=== PATIENT | male | born 1955 | race Caucasian/White ===

== ENCOUNTER 2017-05-22 09:02 | Day surgery (SDC) | payer OTHER ==
[~2017-05-22] VITALS: Ht 182.9 cm; Wt 77.8 kg
[~2017-05-22 09:02] MED LIST: INDERAL XL80 MG; RIZATRIPTAN10 M1; TAMS.4ER; TOPI50
== END 2017-05-22 11:10 | disposition home or self-care (01) ==
LOC: ORSCSDS 09:02
PROVIDERS: Internal Medicine Gastroenterology
PROC: 0DBM8ZX Excision of Descending Colon, Via Natural or Artificial Opening Endoscopic, Diagnostic (ICD-10-PCS; principal; 2017-05-22 10:30)
PROC: 0DBL8ZX Excision of Transverse Colon, Via Natural or Artificial Opening Endoscopic, Diagnostic (ICD-10-PCS; principal; 2017-05-22 10:30)
PROC: 0DBH8ZX Excision of Cecum, Via Natural or Artificial Opening Endoscopic, Diagnostic (ICD-10-PCS; principal; 2017-05-22 10:30)
PROC: 0DBK8ZX Excision of Ascending Colon, Via Natural or Artificial Opening Endoscopic, Diagnostic (ICD-10-PCS; principal; 2017-05-22 10:30)
DX: Z12.11 Encounter for screening for malignant neoplasm of colon (principal); D12.0 Benign neoplasm of cecum; D12.2 Benign neoplasm of ascending colon; D12.3 Benign neoplasm of transverse colon; D12.4 Benign neoplasm of descending colon; K64.8 Other hemorrhoids; K57.30 Diverticulosis of large intestine without perforation or abscess without bleeding; B18.2 Chronic viral hepatitis C; Z86.010 Personal history of colon polyps; F17.210 Nicotine dependence, cigarettes, uncomplicated; N40.0 Benign prostatic hyperplasia without lower urinary tract symptoms; Z79.899 Other long term (current) drug therapy
CPT/HCPCS: 88305; J7120

== ENCOUNTER 2017-06-13 11:12 | Emergency (ER) | payer OTHER ==
[~2017-06-13] VITALS: Ht 182.9 cm; Wt 79.4 kg
[2017-06-13] MEDS ORDERED: Keflex500 MG PO ×2 (14:55→15:05)
[2017-06-13] MEDS ORDERED: Bactrim Ds Tab1 EACH PO ×2 (14:55→15:05)
== END 2017-06-13 15:15 | disposition home or self-care (01) ==
LOC: ER 11:12
DX: L02.214 Cutaneous abscess of groin (principal); Z91.030 Bee allergy status; Z88.8 Allergy status to other drugs, medicaments and biological substances; Z91.018 Allergy to other foods; Z79.899 Other long term (current) drug therapy; F17.200 Nicotine dependence, unspecified, uncomplicated; G43.909 Migraine, unspecified, not intractable, without status migrainosus
CPT/HCPCS: 10061; 81000; 99283

== ENCOUNTER 2018-06-29 11:13 | Emergency (ER) | payer OTHER ==
[~2018-06-29] VITALS: Ht 182.9 cm; Wt 85.7 kg
[~2018-06-29 11:13] MED LIST changes: +Bactrim Ds Tab1 EACH PO; +Keflex500 MG PO
[2018-06-29] MEDS ORDERED: Flonase 0.05% N16 GM (11:51)
[2018-06-29] MEDS ORDERED: Augmentin 875-1 EACH PO (11:51)
[2018-06-29] MEDS ORDERED: Mucinex1200 MG PO (11:51)
[2018-06-29] MEDS ORDERED: ONDA4ODT MM (11:51)
== END 2018-06-29 11:55 | disposition home or self-care (01) ==
LOC: ER 11:13
DX: J32.9 Chronic sinusitis, unspecified (principal); Z91.030 Bee allergy status; Z91.018 Allergy to other foods; Z79.899 Other long term (current) drug therapy; F17.200 Nicotine dependence, unspecified, uncomplicated
CPT/HCPCS: 99283

== ENCOUNTER 2020-07-30 07:24 | Inpatient (IN) | payer MEDICARE ==
[~2020-07-30] VITALS: Ht 182.9 cm; Wt 82.0 kg
[~2020-07-30 07:24] MED LIST changes: +Augmentin 875-1 EACH PO; +Flonase 0.05% N16 GM; +Mucinex1200 MG PO; +ONDA4ODT MM
[2020-07-30 07:54] LABS: BASOPHILS ABSOLUTE AUTO 0.03 K/mm3 (0.00-0.23); BASOPHILS PERCENT AUTO 0 % (0-2); EOSINOPHILS PERCENT AUTO 0 % (0-6); Hematocrit 39.9 % (37.0-53.0); Hemoglobin 13.1 g/dL (13.5-17.5); IMMATURE GRAN ABSOLUTE AUTO 0.06 K/mm3 (0.00-0.10); IMMATURE GRAN PERCENT AUTO 0 % (0-1); LYMPHOCYTES ABSOLUTE AUTO 1.08 K/mm3 (0.84-5.20); LYMPHOCYTES PERCENT AUTO 6 % (21-46); MONOCYTES ABSOLUTE AUTO 1.42 K/mm3 (0.16-1.47); MONOCYTES PERCENT AUTO 8 % (4-13); Mean Corpuscular HGB 30.5 pg (26.0-34.0); Mean Corpuscular HGB Conc 32.8 g/dL (31.5-36.5); Mean Corpuscular Volume 93 fL (80-100); Mean Platelet Volume 10.6 fL (9.1-12.4); NEUTROPHILS ABSOLUTE AUTO 14.29 K/mm3 (1.96-9.15); NEUTROPHILS PERCENT AUTO 85 % (41-73); Platelet Count 193 K/mm3 (150-400); RDW Coefficient Variation 12.8 % (11.7-14.2); RDW Standard Deviation 43.8 fL (35.1-46.3); Red Blood Cell Count 4.29 M/mm3 (4.30-5.90); White Blood Cell Count 16.88 K/mm3 (4.00-11.30)
[2020-07-30 08:16] LABS: Source, Urine Clean Catch
[2020-07-30 08:20] LABS: Blood, Urine 2+ (Neg); Glucose Qualitative, Urine Neg (Neg); Ketones, Urine 3+ (Neg); Leukocyte Esterase, Urine 1+ (Neg); Nitrite, Urine Neg (Neg); Protein, Urine 2+ (Neg); Urobilinogen, Urine 3+ (Normal)
[2020-07-30 08:25] LABS: Appearance, Urine Hazy (Clear); Bilirubin, Urine 1+ (Neg); Color, Urine Yellow (P-Yellow)
[2020-07-30 08:26] LABS: Alanine Aminotransfer (ALT/SGP 41 U/L (12-78); Albumin, Blood 3.7 g/dL (3.4-5.0); Albumin/Globulin Ratio 0.9 (0.8-1.8); Alk Phos 74 U/L (50-136); Anion Gap 8 mmol/L (6-16); Aspartate Aminotrans (AST/SGOT 116 U/L (12-37); Bilirubin, Total 1.7 mg/dL (0.1-1.0); Blood Urea Nitrogen 17 mg/dL (8-24); Bun/Creatinine Ratio 18.3 (12.0-20.0); CO2, Blood 25 mmol/L (21-32); Calcium, Blood 9.1 mg/dL (8.5-10.1); Chloride, Blood 102 mmol/L (98-108); Creatinine, Blood 0.93 mg/dL (0.60-1.20); Globulin, Blood 4.1 g/dL (2.2-4.0); Glomerular Filtration Rate >60 (60-); Glucose, Blood 114 mg/dL (70-99); Potassium, Blood 3.8 mmol/L (3.5-5.5); Sodium, Blood 135 mmol/L (136-145); Total Protein, Blood 7.8 g/dL (6.4-8.2)
[2020-07-30 08:30] LABS: Bacteria Few /hpf; Red Blood Cells, Urine 0-2 /hpf (0-2); Squamous Epithelial Cells Rare /hpf (Few)
[2020-07-30 09:19] LABS: International Normalized Ratio 1.02; Prothrombin Time Results 10.9 Sec (9.7-11.5)
[2020-07-30 11:12] LABS: Influenza A, PCR NEGATIVE (NEGATIVE); Influenza B, PCR NEGATIVE (NEGATIVE); Resp Syncytial Virus, PCR NEGATIVE (NEGATIVE); SARS-Cov-2 (COVID-19) PCR, MMC NEGATIVE (NEGATIVE)
--- NOTE | 2020-07-30 13:16 | NUR ---
Admission/Transfer to HC: Patient arrived to unit at 1230hr, via stretcher, accompanied by ED nurse and his . Patient alert and oriented x4, calm and cooperative with staff. Patient reports chest pain (sharp) and pressure 8-10/10 upon arrival. Denies dyspnea/SOB. VSS, SPO2-94-97% on RA, HR shows sinus in the 70's, BP- systolic 90's-low 100's. Heparin gtt started per pharmacy consult, and Nitro gtt started at 5 mcg/min per chest pain. Plan to titrate nitro up to alleviate chest pain and as tolerated (BP's). Peripheral IV's x2 patent and intact. PO plavix, lipitor, lopressor also given. HC staff arrived to room at 1310hr to take patient for angiogram, transferred out of unit at 1315hr.
[2020-07-30 13:57] LABS: U Amphetamine Screen Not Detected; U Barbituate Screen Not Detected; U Benzodiazapine Screen Not Detected; U Buprenorphine Screen Not Detected; U Cannabinoids Screen Not Detected; U Cocaine Screen Not Detected; U Methadone Screen Not Detected; U Methamphetamine Screen Not Detected; U Opiates Screen Not Detected; U Oxycodone Screen DETECTED; U Phencyclidine Screen Not Detected; U Propoxyphene Screen Not Detected
--- NOTE | 2020-07-30 16:36 | NUR ---
Return from HC: Patient returned from at approx 1545hr, via bed, accompanied by HC nurse. Patient alert and oriented, denies any pain or discomfort. VSS, spO2-98% on RA, sinus rhythm in the 70's. Agrastat gtt infusing upon arrival, but no orders in EMAR. Dr. Braun to unit at approx 1615hr, received orders for lab's in the morning, and to continue Agrastat gtt, informed he would place to order for the gtt. TR band with 10ml to rt radial, no s/s of bleeding or hematoma, arm-board in place. Instructed to no use rt wrist/hand and to call for assistance. now at bedside, patient remains calm and comfortable. Will continue to monitor.
--- NOTE | 2020-07-30 19:00 | NUR ---
ASSUMED CARE ASSUMED CARE OF PATIENT. AWAKE AND ALERT. ORIENTED AND COOPERATIVE WITH CARE. DENIES C/O PAIN OR DISCOMFORT AT THIS TIME. UP WITH STANDBY ASSIST WITHOUT DIFFICULTY. VSS. RA SATS STABLE. RESPIRATIONS EVEN AND UNLABORED. VOIDING WITHOUT DIFFICULTY. CONTINUES TO PASS LIQUID STOOL- PT STATES HE TOOK MAG CITRATE AT HOME. AGGRASTAT CONTINUES PER ORDER. RIGHT RADIAL TR BAND IN PLACE WITH APPROXIMATELY 9CC OF AIR IN PLACE. SITE IS SOFT. NO BLEEDING OR HEMATOMA NOTED. SEE SHIFT ASSESSMENT FOR FULL ASSESSMENT.
--- NOTE | 2020-07-30 19:22 | NUR ---
Shift Summary: No significant changes throughout remainder of shfit (see previous note). Rt radial arterial access site remains wnl, no s/s of bleeding or hematoma. Attempted to remove 2ml of air from TR band at approx 1800hr, but site began to ooze blood, 2ml air returned to band and bleeding stopped. Then removed 1ml of air at approx 1830, no bleeding/hematoma noted. Site visualized and assessed with NOC shift RN. Continues to deny pain, discomfort, SOB or dyspnea. VS remain stable. Transferred to bedside commode via stand-by assisst without difficulty. Tolerated PO food and fluids without difficulty.
--- NOTE | 2020-07-30 22:05 | NUR ---
TR BAND TR BAND IS FULLY DEFLATED AT THIS TIME. SITE IS SOFT. NO BLEEDING/OOZING NOTED. ARM BOARD REMAINS IN PLACE.
[2020-07-31 03:31] LABS: BASOPHILS ABSOLUTE AUTO 0.05 K/mm3 (0.00-0.23); BASOPHILS PERCENT AUTO 0 % (0-2); EOSINOPHILS ABSOLUTE AUTO 0.02 K/mm3 (0.00-0.68); EOSINOPHILS PERCENT AUTO 0 % (0-6); Hematocrit 35.9 % (37.0-53.0); Hemoglobin 12.1 g/dL (13.5-17.5); IMMATURE GRAN ABSOLUTE AUTO 0.04 K/mm3 (0.00-0.10); IMMATURE GRAN PERCENT AUTO 0 % (0-1); LYMPHOCYTES ABSOLUTE AUTO 2.32 K/mm3 (0.84-5.20); LYMPHOCYTES PERCENT AUTO 17 % (21-46); MONOCYTES ABSOLUTE AUTO 1.35 K/mm3 (0.16-1.47); MONOCYTES PERCENT AUTO 10 % (4-13); Mean Corpuscular HGB 30.9 pg (26.0-34.0); Mean Corpuscular HGB Conc 33.7 g/dL (31.5-36.5); Mean Corpuscular Volume 92 fL (80-100); Mean Platelet Volume 10.7 fL (9.1-12.4); NEUTROPHILS ABSOLUTE AUTO 9.54 K/mm3 (1.96-9.15); NEUTROPHILS PERCENT AUTO 72 % (41-73); Platelet Count 165 K/mm3 (150-400); RDW Coefficient Variation 13.1 % (11.7-14.2); RDW Standard Deviation 43.9 fL (35.1-46.3); Red Blood Cell Count 3.92 M/mm3 (4.30-5.90); White Blood Cell Count 13.32 K/mm3 (4.00-11.30)
[2020-07-31 04:06] LABS: Alanine Aminotransfer (ALT/SGP 39 U/L (12-78); Albumin/Globulin Ratio 0.8 (0.8-1.8); Alk Phos 84 U/L (50-136); Anion Gap 4 mmol/L (6-16); Aspartate Aminotrans (AST/SGOT 74 U/L (12-37); Bilirubin, Total 1.1 mg/dL (0.1-1.0); Blood Urea Nitrogen 22 mg/dL (8-24); Bun/Creatinine Ratio 22.2 (12.0-20.0); CO2, Blood 29 mmol/L (21-32); Calcium, Blood 8.7 mg/dL (8.5-10.1); Chloride, Blood 103 mmol/L (98-108); Cholesterol 131 mg/dL (50-200); Creatinine, Blood 0.99 mg/dL (0.60-1.20); Globulin, Blood 3.9 g/dL (2.2-4.0); Glomerular Filtration Rate >60 (60-); Glucose, Blood 105 mg/dL (70-99); HDL Cholesterol 43 mg/dL (>39); LDL/HDL RATIO 1.8; Low Density Lipoprotein Chol 76 mg/dL (0-110); Potassium, Blood 4.3 mmol/L (3.5-5.5); Sodium, Blood 136 mmol/L (136-145); Total Protein, Blood 6.9 g/dL (6.4-8.2); Triglycerides 61 mg/dL (30-160); Very Low Density Lipoprot Chol 12 mg/dL (6-32)
--- NOTE | 2020-07-31 06:13 | NUR ---
SHIFT SUMMARY NO ACUTE CHANGES DURING NOC. SLEPT WHEN UNDISTURBED. UP TO BATHROOM WITH STAND-BY ASSIST WITHOUT DIFFICULTY. VOIDING. DENIES C/O DIZZINESS, CHEST PAIN, OR OTHER DISCOMFORT. SBP 80s-90s WHILE ASLEEP. MONITOR SHOWS NSR. REMAINS ON RA- SATS STABLE. AGGRASTAT CONTINUES PER ORDER- PLAN IS TO DISCONTINUE AT 0900 (18 HOUR INFUSION). RIGHT RADIAL SITE IS SOFT, SMALL AMOUNT OF OOZING NOTED UNDER OPSITE. ARM BOARD IN PLACE AND PT HAS BEEN INSTRUCTED ON LIMITATIONS. UP IN CHAIR AT THIS TIME. WILL REPORT TO ONCOMING RN WHEN AVAILABLE.
--- NOTE | 2020-07-31 08:30 | NUR ---
ASSESSMENT- PT AWAKE, ALERT, ORIENTED, COOPERATIVE. UP IN CHAIR, NO DISTRESS. DENIES ANY PAIN OR SOB OR DIZZINESS. STATES DOES NORMALLY HAVE A LOW BLOOD PRESSURE BUT DOES NOT KNOW SPECIFIC NUMBER. NSR. LUNGS CLEAR. DR. CAICEDO HERE EARLIER. DR. BOX HERE NOW-PLANS FOR DISCHARGE THIS AFTERNOON IF NO COMPLAINTS. PT STATES WANTS TO GO HOME. VERY TALKATIVE. TEACHING REGARDING PLAN OF CARE, STATES UNDERSTANDS NEED TO TAKE PLAVIX AND ASA. ATE BREAKFAST.
--- NOTE | 2020-07-31 11:24 | NUR ---
PT UP IN CHAIR TALKING ON PHONE. DENIES COMPLAINTS. VS UNCHANGED. BP REMAINS LOW. NO DIZZINESS OR COMPLAINTS.
[2020-07-31] MEDS ORDERED: ATOR40TA PO (14:01)
[2020-07-31] MEDS ORDERED: ACET325 PO (14:01)
[2020-07-31] MEDS ORDERED: ASPI81CH PO (14:01)
[2020-07-31] MEDS ORDERED: CLOP75 PO (14:02)
--- NOTE | 2020-07-31 14:28 | NUR ---
PT WITH STABLE VS, DR. BOX HERE-UPDATED. ORDERS FOR DISCHARGE. REVIEWED MEDS, DISCHARGE PLAN, PRECAUTIONS WITH PT AND PT'S SIG OTHER-STATE UNDERSTANDING. DOES NOT HAVE CURRENT PHYSICIAN, PLANS TO SEE DR. CARRANZA-APPOINTMENT MADE. RIGHT RADIAL SITE DI. PIV D/C X 2. SMOKING CESSATION EMPHASIZED. MEDS CALLED IN
== END 2020-07-31 14:30 | disposition home or self-care (01) | DRG 247 ==
LOC: ER 07:24 → ICUW 10:19
PROVIDERS: Emergency Medicine; Nurse Practitioner Acute Care; Pharmacist; Physician Assistant; ADMIT Internal Medicine
PROC: 027035Z Dilation of Coronary Artery, One Artery with Two Drug-eluting Intraluminal Devices, Percutaneous Approach (ICD-10-PCS; principal; 2020-07-30)
PROC: 02C03ZZ Extirpation of Matter from Coronary Artery, One Artery, Percutaneous Approach (ICD-10-PCS; 2020-07-30)
PROC: 4A023N7 Measurement of Cardiac Sampling and Pressure, Left Heart, Percutaneous Approach (ICD-10-PCS; 2020-07-30)
PROC: B2011ZZ Plain Radiography of Multiple Coronary Arteries using Low Osmolar Contrast (ICD-10-PCS; 2020-07-30)
DX: I21.4 Non-ST elevation (NSTEMI) myocardial infarction (principal); F17.210 Nicotine dependence, cigarettes, uncomplicated; Z20.822 Contact with and (suspected) exposure to COVID-19; Z92.3 Personal history of irradiation; B19.20 Unspecified viral hepatitis C without hepatic coma; I25.5 Ischemic cardiomyopathy; E78.5 Hyperlipidemia, unspecified; Z86.73 Personal history of transient ischemic attack (TIA), and cerebral infarction without residual deficits
CPT/HCPCS: 0241U; 36415; 70450; 71045; 71275; 74175; 80053; 80061; 81001; 83036; 83690; 83735; 83880; 84484; 85025; 85347; 85379; 85610; 85730; 87086; 93005; 93010; 93306; 93458; 96374-59; 96375-59; 99152; 99153; 99285-25; A9270; C1725; C1753; C1757; C1769; C1874; C1887; C1894; C9600; J0153; J0461; J1170; J1644; J2250; J3010; J3246; J7030; J7050; Q9967

== ENCOUNTER 2021-12-22 18:37 | Emergency (ER) | payer MEDICARE ==
[~2021-12-22] VITALS: Ht 182.9 cm; Wt 84.4 kg
[~2021-12-22 18:37] MED LIST changes: +ACET325 PO; +ASPI81CH PO; +ATOR40TA PO; +CLOP75 PO
[2021-12-22] MEDS ORDERED: METO25ER PO (19:19)
[2021-12-22] MEDS ORDERED: OMEP20ER (19:19)
[2021-12-22] MEDS ORDERED: OXYC5 PO (20:16)
== END 2021-12-22 20:54 | disposition home or self-care (01) ==
LOC: ER 18:37
DX: S89.92XA Unspecified injury of left lower leg, initial encounter (principal); M25.562 Pain in left knee; F17.210 Nicotine dependence, cigarettes, uncomplicated; Z79.82 Long term (current) use of aspirin; Z79.899 Other long term (current) drug therapy; X58.XXXA Exposure to other specified factors, initial encounter
CPT/HCPCS: 29505; 73562-LT; 99283-25; A9270

== ENCOUNTER 2022-05-06 09:05 | Day surgery (SDC) | payer MEDICARE ==
[~2022-05-06] VITALS: Ht 182.9 cm; Wt 81.9 kg
[~2022-05-06 09:05] MED LIST changes: +METO25ER PO; +OMEP20ER; +OXYC5 PO
== END 2022-05-06 13:12 | disposition home or self-care (01) ==
LOC: ORSCSDS 09:05
PROVIDERS: Orthopaedic Surgery
PROC: 0SJD4ZZ Inspection of Left Knee Joint, Percutaneous Endoscopic Approach (ICD-10-PCS; principal; 2022-05-06 10:30)
DX: S83.232A Complex tear of medial meniscus, current injury, left knee, initial encounter (principal); M22.42 Chondromalacia patellae, left knee; I25.10 Atherosclerotic heart disease of native coronary artery without angina pectoris; I10 Essential (primary) hypertension; F17.210 Nicotine dependence, cigarettes, uncomplicated; Z79.82 Long term (current) use of aspirin; Z79.899 Other long term (current) drug therapy
CPT/HCPCS: 93005; 93010; A9270; J0171; J0690; J1100; J2250; J2405; J2704; J2795; J3010

== ENCOUNTER 2023-07-14 14:35 | Emergency (ER) | payer MEDICARE ==
[~2023-07-14] VITALS: Ht 182.9 cm; Wt 86.2 kg
[2023-07-14 15:01] VITALS: BP 131/80
[2023-07-14 15:46] LABS: BASOPHILS ABSOLUTE AUTO 0.07 K/mm3 (0.00-0.23); BASOPHILS PERCENT AUTO 1 % (0-2); EOSINOPHILS ABSOLUTE AUTO 0.29 K/mm3 (0.00-0.68); EOSINOPHILS PERCENT AUTO 3 % (0-6); Hematocrit 40.2 % (37.0-53.0); Hemoglobin 13.1 g/dL (13.5-17.5); IMMATURE GRAN ABSOLUTE AUTO 0.02 K/mm3 (0.00-0.10); IMMATURE GRAN PERCENT AUTO 0 % (0-1); LYMPHOCYTES PERCENT AUTO 39 % (21-46); MONOCYTES ABSOLUTE AUTO 0.76 K/mm3 (0.16-1.47); MONOCYTES PERCENT AUTO 9 % (4-13); Mean Corpuscular HGB 30.5 pg (26.0-34.0); Mean Corpuscular HGB Conc 32.6 g/dL (31.5-36.5); Mean Corpuscular Volume 94 fL (80-100); Mean Platelet Volume 10.3 fL (9.1-12.4); NEUTROPHILS ABSOLUTE AUTO 4.13 K/mm3 (1.96-9.15); NEUTROPHILS PERCENT AUTO 48 % (41-73); Platelet Count 212 K/mm3 (150-400); RDW Coefficient Variation 13.1 % (11.7-14.2); White Blood Cell Count 8.67 K/mm3 (4.00-11.30)
[2023-07-14 16:05] LABS: Albumin, Blood 3.6 g/dL (3.4-5.0); Albumin/Globulin Ratio 1.1 (0.8-1.8); Bilirubin, Total 0.4 mg/dL (0.1-1.0); Bun/Creatinine Ratio 19.7 (12.0-20.0); Creatinine, Blood 0.92 mg/dL (0.60-1.20); Globulin, Blood 3.3 g/dL (2.2-4.0); Potassium, Blood 4.5 mmol/L (3.5-5.5); Total Protein, Blood 6.9 g/dL (6.4-8.2)
== END 2023-07-14 16:23 | disposition left against medical advice (07) ==
LOC: ER 14:35
PROVIDERS: Physician Assistant
DX: R55 Syncope and collapse (principal); Z53.29 Procedure and treatment not carried out because of patient's decision for other reasons
CPT/HCPCS: 71046; 80053; 84484; 85025

== ENCOUNTER → 2024-02-23 | Outpatient (CLI) | payer MEDICARE ==
[2024-02-23 13:27] LABS: BASOPHILS ABSOLUTE AUTO 0.06 K/mm3 (0.00-0.23); BASOPHILS PERCENT AUTO 1 % (0-2); EOSINOPHILS ABSOLUTE AUTO 0.15 K/mm3 (0.00-0.68); EOSINOPHILS PERCENT AUTO 2 % (0-6); Hematocrit 46.1 % (37.0-53.0); Hemoglobin 15.3 g/dL (13.5-17.5); IMMATURE GRAN ABSOLUTE AUTO 0.02 K/mm3 (0.00-0.10); IMMATURE GRAN PERCENT AUTO 0 % (0-1); LYMPHOCYTES ABSOLUTE AUTO 2.63 K/mm3 (0.84-5.20); LYMPHOCYTES PERCENT AUTO 31 % (21-46); MONOCYTES ABSOLUTE AUTO 0.48 K/mm3 (0.16-1.47); MONOCYTES PERCENT AUTO 6 % (4-13); Mean Corpuscular HGB 31.4 pg (26.0-34.0); Mean Corpuscular HGB Conc 33.2 g/dL (31.5-36.5); Mean Corpuscular Volume 95 fL (80-100); Mean Platelet Volume 10.7 fL (9.1-12.4); NEUTROPHILS ABSOLUTE AUTO 5.17 K/mm3 (1.96-9.15); NEUTROPHILS PERCENT AUTO 61 % (41-73); Platelet Count 265 K/mm3 (150-400); RDW Coefficient Variation 12.5 % (11.7-14.2); RDW Standard Deviation 43.3 fL (35.1-46.3); Red Blood Cell Count 4.87 M/mm3 (4.30-5.90); White Blood Cell Count 8.51 K/mm3 (4.00-11.30)
[2024-02-23 14:06] LABS: Alanine Aminotransfer (ALT/SGP 36 U/L (12-78); Albumin, Blood 3.9 g/dL (3.4-5.0); Albumin/Globulin Ratio 1.2 (0.8-1.8); Alk Phos 73 U/L (50-136); Anion Gap 8 mmol/L (3-11); Aspartate Aminotrans (AST/SGOT 27 U/L (12-37); Bilirubin, Total 1.2 mg/dL (0.1-1.0); Blood Urea Nitrogen 15 mg/dL (8-24); CHOL/HDL RATIO 2.4; CO2, Blood 29 mmol/L (21-32); Calcium, Blood 9.5 mg/dL (8.5-10.1); Chloride, Blood 108 mmol/L (98-108); Cholesterol 130 mg/dL (50-200); Globulin, Blood 3.3 g/dL (2.2-4.0); Glucose, Blood 107 mg/dL (70-99); HDL Cholesterol 55 mg/dL (>39); Low Density Lipoprotein Chol 57 mg/dL (0-110); Potassium, Blood 4.5 mmol/L (3.5-5.5); Sodium, Blood 140 mmol/L (136-145); Total Protein, Blood 7.2 g/dL (6.4-8.2); Triglycerides 92 mg/dL (30-160); Very Low Density Lipoprot Chol 18 mg/dL (6-32)
[2024-02-23 14:07] LABS: Bun/Creatinine Ratio 15.8 (12.0-20.0); Creatinine, Blood 0.95 mg/dL (0.60-1.20); Glomerular Filtration Rate 87 (60-)
== END | disposition home or self-care (01) ==
LOC: LAB 12:08 → LAB SHORT 12:08
PROVIDERS: Internal Medicine
DX: Z12.5 Encounter for screening for malignant neoplasm of prostate (principal); E78.00 Pure hypercholesterolemia, unspecified
CPT/HCPCS: 80053; 80061; 85025; G0103

== ENCOUNTER → 2025-02-28 | Outpatient (CLI) | payer MEDICARE ==
[2025-02-28 14:49] LABS: BASOPHILS ABSOLUTE AUTO 0.05 K/mm3 (0.00-0.23); BASOPHILS PERCENT AUTO 1 % (0-2); EOSINOPHILS ABSOLUTE AUTO 0.17 K/mm3 (0.00-0.68); EOSINOPHILS PERCENT AUTO 2 % (0-6); Hematocrit 44.5 % (37.0-53.0); Hemoglobin 14.2 g/dL (13.5-17.5); IMMATURE GRAN ABSOLUTE AUTO 0.02 K/mm3 (0.00-0.10); IMMATURE GRAN PERCENT AUTO 0 % (0-1); LYMPHOCYTES ABSOLUTE AUTO 2.63 K/mm3 (0.84-5.20); LYMPHOCYTES PERCENT AUTO 29 % (21-46); MONOCYTES ABSOLUTE AUTO 0.57 K/mm3 (0.16-1.47); MONOCYTES PERCENT AUTO 6 % (4-13); Mean Corpuscular HGB Conc 31.9 g/dL (31.5-36.5); Mean Corpuscular Volume 94 fL (80-100); NEUTROPHILS ABSOLUTE AUTO 5.73 K/mm3 (1.96-9.15); NEUTROPHILS PERCENT AUTO 63 % (41-73); NRBC ABSOLUTE 0.00 K/mm3 (0.00-0.02); NRBC Auto 0.0 /100 WBC (0.0-0.2); Platelet Count 235 K/mm3 (150-400); RDW Coefficient Variation 12.8 % (11.7-14.2); RDW Standard Deviation 44.3 fL (35.1-46.3)
[2025-02-28 15:00] LABS: Alanine Aminotransfer (ALT/SGP 33 U/L (12-78); Albumin, Blood 4.1 g/dL (3.4-5.0); Albumin/Globulin Ratio 1.5 (0.8-1.8); Anion Gap 6 mmol/L (3-11); Aspartate Aminotrans (AST/SGOT 22 U/L (12-37); Bilirubin, Total 1.3 mg/dL (0.1-1.0); Blood Urea Nitrogen 19 mg/dL (8-24); CHOL/HDL RATIO 2.2; CO2, Blood 29 mmol/L (21-32); Calcium, Blood 9.1 mg/dL (8.5-10.1); Chloride, Blood 110 mmol/L (98-108); Cholesterol 103 mg/dL (50-200); Creatinine, Blood 0.84 mg/dL (0.60-1.20); Globulin, Blood 2.7 g/dL (2.2-4.0); Glucose, Blood 97 mg/dL (70-99); HDL Cholesterol 46 mg/dL (>39); LDL/HDL RATIO 1.0; Low Density Lipoprotein Chol 47 mg/dL (0-110); Potassium, Blood 3.8 mmol/L (3.5-5.5); Prostate Specific Antigen 4.440 ng/mL (0.000-4.000); Sodium, Blood 141 mmol/L (136-145); Total Protein, Blood 6.8 g/dL (6.4-8.2); Triglycerides 50 mg/dL (30-160); Very Low Density Lipoprot Chol 10 mg/dL (6-32)
== END ==
LOC: LAB SHORT 13:32 → LAB 13:32
PROVIDERS: Internal Medicine
DX: E78.00 Pure hypercholesterolemia, unspecified (principal); Z12.5 Encounter for screening for malignant neoplasm of prostate
CPT/HCPCS: 80053; 80061; 85025; G0103

== ENCOUNTER → 2025-04-04 | Outpatient (CLI) | payer MEDICARE ==
[2025-04-04 15:18] LABS: PSA, %Free 28.7 %; PSA, Free 0.987 ng/mL; Prostate Specific Antigen 3.440 ng/mL (0.000-4.000)
== END ==
LOC: LAB 13:50 → LAB SHORT 13:50
PROVIDERS: Internal Medicine
DX: R97.20 Elevated prostate specific antigen [PSA] (principal)
CPT/HCPCS: 84153; 84154